=== PATIENT | male | born 1990 | race Asian ===

== ENCOUNTER → 2018-09-23 | Outpatient (CLI) | payer OTHER | END | disposition home or self-care (01) | LOC: RADPV 10:28 | PROVIDERS: ATTEND Hospitalist | DX: E11.22 Type 2 diabetes mellitus with diabetic chronic kidney disease (principal); N18.2 Chronic kidney disease, stage 2 (mild); R80.9 Proteinuria, unspecified | CPT/HCPCS: 76770 ==